=== PATIENT | male | born 1975 | race Hispanic/Latino ===

== ENCOUNTER → 2020-01-20 | Outpatient (CLI) | payer OTHER ==
[~2020-01-20] MED LIST: IOPAMIDOL 370 MG/ML 200 ML INFUS..BTL INJ ONE; SODIUM CHLORIDE 0.9% 250ML 250 ML ONE; SODIUM CHLORIDE 0.9% 50ML 50 ML ONE
[2020-01-20 17:31] LABS: BLOOD UREA NITROGEN 12 mg/dL (7-26); BUN/CREATININE RATIO 13 (6-25); EST GLOMERULAR FILTRATION RATE > 60 ML/MIN (60-)
--- NOTE | 2020-01-23 09:14 | Diagnostic Imaging Report ---
CT of the abdomen and pelvis without and with contrast (CT UROGRAM). History: [employer] hematuria. Comparison: None available. Technique: Multidetector CT scanning of the abdomen and pelvis was performed from the level of the lung bases to the inferior pubic rami before and after intravenous administration of contrast according to the CT urinary protocol. Coronal and sagittal multiplanar reformations as well as 3-D reformations were obtained. RADIATION DOSE: Total DLP: 1765.56 mGy*cm Dose modulation, iterative reconstruction, and/or weight based adjustment of the mA/kV was utilized to reduce the radiation dose to as low as reasonably achievable. FINDINGS: The visualized lungs are clear. The imaged portion of the heart demonstrates no significant abnormalities. The liver is is enlarged measuring 21.5 cm in length and demonstrates diffusely decreased attenuation compatible with fatty infiltration. No focal hepatic abnormality is identified. The gallbladder is unremarkable. There is no biliary ductal dilatation. The stomach, spleen, pancreas, and bilateral adrenal glands are unremarkable. The kidneys are normal in size and location. There is no evidence for nephrolithiasis or hydronephrosis. The kidneys concentrate and excrete contrast material symmetrically. A subcentimeter hypodensity is identified within the superior pole of the right kidney which is too small to definitively characterize but likely represents a small cyst. There is no evidence for solid or enhancing mass. There is a single collecting system and ureter are identified bilaterally. There is good opacification of the right ureter which is normal in course and caliber without evidence of filling defect or other intrinsic/extrinsic abnormality. The proximal and mid left ureter are well opacified. The distal left ureter is suboptimally opacified. However, there is no evidence for left ureteral dilatation, filling defect, or other intrinsic/extrinsic abnormality. The partially distended urinary bladder demonstrates no filling defects or other abnormalities. The prostate is mildly prominent but otherwise unremarkable. The abdominal aorta is normal in course and caliber. The IVC is unremarkable. The bilateral renal arteries and veins are patent. An accessory left renal artery is noted. Please note evaluation the bowel is limited without the use of enteric contrast material. The visualized loops of small and large bowel demonstrate no evidence of obstruction or inflammation. The appendix is visualized and appears unremarkable. There is no ascites or intraperitoneal free air. No abnormally enlarged lymph nodes are identified within the abdomen or pelvis. Small bilateral fat-containing inguinal hernias noted. The osseous structures demonstrate no evidence for acute fracture or destructive process. The extraperitoneal soft tissues are unremarkable. IMPRESSION: 1. Unremarkable CT urogram without evidence for solid renal mass, nephrolithiasis, or other urinary pathology to explain the patient's hematuria. 2. Hepatomegaly and CT findings compatible with hepatic steatosis. Signed by: Dr. Arsh Gooden MD on 01/23/2020 9:10 AM
== END ==
LOC: CT 16:36
PROVIDERS: ATTEND Urology
DX: R31.21 Asymptomatic microscopic hematuria (principal)
CPT/HCPCS: 36415; 74178; 82565; 84520; J7050; Q9967